=== PATIENT | male | born 1995 | race Caucasian/White ===

== ENCOUNTER 2016-09-13 05:52 | Emergency (ER) | payer OTHER ==
[~2016-09-13] VITALS: Ht 180.3 cm; Wt 71.4 kg
[2016-09-13 05:55] VITALS: Ht 180.3 cm; Wt 71.4 kg
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
[2016-09-13 07:30] VITALS: BP 124/68; PULSE 88; TEMP 36.6; O2SAT 97
== END 2016-09-13 07:31 | disposition home or self-care (01) ==
LOC: C.EDB 05:53 → MERGE 05:53 → C.EDA 07:31
DX: S13.4XXA Sprain of ligaments of cervical spine, initial encounter (principal); S60.811A Abrasion of right wrist, initial encounter; S60.812A Abrasion of left wrist, initial encounter; V49.9XXA Car occupant (driver) (passenger) injured in unspecified traffic accident, initial encounter; M25.562 Pain in left knee; F17.200 Nicotine dependence, unspecified, uncomplicated; Z83.3 Family history of diabetes mellitus; Z82.49 Family history of ischemic heart disease and other diseases of the circulatory system

== ENCOUNTER → 2016-09-13 | Outpatient (CLI) | payer OTHER | END | disposition home or self-care (01) | LOC: C.LAB 03:34 | DX: Z02.83 Encounter for blood-alcohol and blood-drug test (principal) ==

== ENCOUNTER 2017-11-29 01:16 | Emergency (ER) | payer BC, OTHER ==
[~2017-11-29] VITALS: Ht 180.3 cm; Wt 74.1 kg
[2017-11-29 01:24] VITALS: Ht 180.3 cm; Wt 74.1 kg
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
[2017-11-29] MEDS ORDERED: CYCL10TA6 PO (02:07)
[2017-11-29] MEDS ORDERED: METH4PAK PO (02:07)
[2017-11-29] MEDS ORDERED: FLEXERIL HOME PACK 10 MG VIAL PO ONE (02:15)
[2017-11-29 02:33] VITALS: BP 105/63; PULSE 50; TEMP 36.5; O2SAT 98
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
== END 2017-11-29 02:33 | disposition home or self-care (01) ==
LOC: C.EDB 01:17 → C.EDA 02:33
DX: M75.101 Unspecified rotator cuff tear or rupture of right shoulder, not specified as traumatic (principal); M62.830 Muscle spasm of back; Z87.891 Personal history of nicotine dependence